=== PATIENT | male | born 1935 | race Caucasian/White ===

== ENCOUNTER 2020-07-05 13:04 | Outpatient (CLI) | payer MEDICARE, SELFPAY ==
--- NOTE | 2020-07-05 | XR_ITS ---
WS: [id number] EXAM: Chest: PA and lateral DATE OF EXAMINATION: 07/05/2020, 1328 hours COMPARISON: None. HISTORY: Patient is 85 years old with cough and unexplained weight loss.. FINDINGS: The heart size is normal. The mediastinal contours are normal other than slight calcified plaque in the aorta. Pulmonary vascularity is within normal limits. Chronic lung changes are demonstrated. Victor Manuel cified granulomas changes demonstrated. Lungs are clear of consolidation. No effusion, or pneumothora x. Bone density appears decreased. Scattered degenerative changes are seen in the spine. Degenerativ e changes in both shoulders. XR/XR chest 2V* [id number] IMPRESSION: CHRONIC LUNG CHANGES. NO ACUTE PULMONARY DISEASE.
--- NOTE | 2020-07-05 | XR_ITS ---
WS: [id number] EXAM: ABDOMINAL KUB DATE OF EXAMINATION: 07/05/2020, 1334 hours COMPARISON: None. HISTORY: Patient is 85 years old with unexplained weight loss. FINDINGS: Bowel gas pattern is normal other than fairly diffuse increased stool throughout the colon. No calcif ications seen to suggest renal or ureteral calculi. 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 Arterial atherosclerotic plaque formation changes noted. XR/XR KUB [id number] IMPRESSION: Normal bowel gas pattern. Increased stool.
== END 2020-07-05 13:05 | disposition home or self-care (01) ==
LOC: RAD 13:08
PROVIDERS: Visit Provider Family Medicine
DX: R63.4 Abnormal weight loss (principal); R05 Cough
CPT/HCPCS: 71046; 74018